=== PATIENT | female | born 1980 | race Caucasian/White ===

== ENCOUNTER 2018-11-09 15:41 | Observation (INO) | payer OTHER ==
[2018-11-09] MEDS: LACTATED RINGER'S 1,000 ML IV (17:14)
[2018-11-09 18:04] LABS: RUPTURE FETAL MEMBRANES NEGATIVE (NEGATIVE)
[2018-11-10] MEDS ORDERED: PRENATAL VITAMIN PO (09:00)
[2018-11-10] MEDS ORDERED: FERROUS SULFATE (EC) 325 MG TAB PO (09:00)
== END 2018-11-09 23:46 | disposition home or self-care (01) ==
LOC: OBT 15:41 → L-D 15:43 → OBT 16:05 → L-D 16:05
PROVIDERS: Specialist
DX: O60.03 Preterm labor without delivery, third trimester (principal); O44.03 Complete placenta previa NOS or without hemorrhage, third trimester; O41.03X0 Oligohydramnios, third trimester, not applicable or unspecified; Z3A.34 34 weeks gestation of pregnancy
CPT/HCPCS: 76815; 84112; 99217

== ENCOUNTER 2018-11-11 12:10 | Inpatient (IN) | payer OTHER ==
[2018-11-11] MEDS ORDERED: AL HYDROX/MG HYDROX/SIMETH 30 ML CUP PO (13:00)
[2018-11-11] MEDS ORDERED: ACETAMINOPHEN 325 MG TAB PO (13:00)
[2018-11-11] MEDS: LACTATED RINGER'S 1,000 ML IV ×2 (13:10→19:10)
[2018-11-11 13:59] LABS: ADD MAN DIFF? NO
[2018-11-11 14:01] LABS: WHITE BLOOD COUNT 9.7 10^3/ul (4.8-10.8)
[2018-11-11 14:01] LABS: BASOPHIL # 0.1 10^3/ul (0.0-0.1); BASOPHILS % 0.5 % (0.0-2.0); EOSINOPHILS # 0.1 10^3/ul (0.0-0.5); EOSINOPHILS % 0.9 % (0.0-7.0); HEMATOCRIT 41.1 % (37.0-47.0); HEMOGLOBIN 14.2 g/dl (12.0-16.0); LYMPHOCYTES # 1.5 10^3/ul (0.8-2.9); LYMPHOCYTES % 15.4 % (15.0-51.0); MEAN CORPUSCULAR HEMOGLOBIN 31.2 pg (29.0-33.0); MEAN CORPUSCULAR HGB CONC 34.5 g/dl (32.0-37.0); MEAN CORPUSCULAR VOLUME 90.3 fl (82.0-101.0); MEAN PLATELET VOLUME 10.1 fl (7.4-10.4); MONOCYTE # 0.5 10^3/ul (0.3-0.9); MONOCYTES % 5.4 % (0.0-11.0); NEUTROPHIL # 7.4 10^3/ul (1.6-7.5); NEUTROPHILS % 76.2 % (39.0-77.0); PLATELET COUNT 220 10^3/UL (140-415); RED BLOOD COUNT 4.55 10^6/ul (4.20-5.40); RED CELL DISTRIBUTION WIDTH 13.4 % (11.5-14.5)
[2018-11-11 14:22] LABS: INR 0.96; PROTIME 12.9 Sec (11.9-14.9)
[2018-11-11 14:23] LABS: PARTIAL THROMBOPLASTIN TIME 28.6 Sec (23.0-35.0)
[2018-11-11] MEDS: DEXAMETHASONE 4 MG/ML 5 ML INJ IM (14:34)
[2018-11-11 15:20] LABS: RAPID PLASMA REAGIN NONREACTIVE (NR)
[2018-11-11] MEDS: FERROUS SULFATE (EC) 325 MG TAB PO (17:02)
[2018-11-11] MEDS: PRENATAL VITAMIN PO (17:02)
[2018-11-11 17:55] LABS: HEPATITIS B SURFACE ANTIGEN NEGATIVE (NEGATIVE)
[2018-11-12] MEDS: DEXAMETHASONE 4 MG/ML 5 ML INJ IM ×2 (02:19→14:15)
[2018-11-12] MEDS: LACTATED RINGER'S 1,000 ML IV ×3 (02:26→22:32)
[2018-11-12] MEDS: FERROUS SULFATE (EC) 325 MG TAB PO (10:06)
[2018-11-12] MEDS: DOCUSATE SODIUM 100 MG CAP PO (10:08)
[2018-11-12] MEDS: PRENATAL VITAMIN PO (10:16)
[2018-11-13] MEDS: DEXAMETHASONE 4 MG/ML 5 ML INJ IM (02:07)
[2018-11-13] MEDS: LACTATED RINGER'S 1,000 ML IV ×3 (07:18→22:38)
[2018-11-13] MEDS: PRENATAL VITAMIN PO (10:29)
[2018-11-13] MEDS: FERROUS SULFATE (EC) 325 MG TAB PO (10:29)
[2018-11-13] MEDS: DOCUSATE SODIUM 100 MG CAP PO (10:29)
[2018-11-14] MEDS: LACTATED RINGER'S 1,000 ML IV ×2 (08:32→16:00)
[2018-11-14] MEDS: PRENATAL VITAMIN PO (08:36)
[2018-11-14] MEDS: DOCUSATE SODIUM 100 MG CAP PO (08:36)
[2018-11-14] MEDS: FERROUS SULFATE (EC) 325 MG TAB PO (16:00)
== END 2018-11-14 18:43 | disposition home or self-care (01) | DRG 832 ==
LOC: L-D 12:10
PROVIDERS: Specialist
DX: O44.03 Complete placenta previa NOS or without hemorrhage, third trimester (principal); O41.03X0 Oligohydramnios, third trimester, not applicable or unspecified; O36.5930 Maternal care for other known or suspected poor fetal growth, third trimester, not applicable or unspecified; O32.1XX0 Maternal care for breech presentation, not applicable or unspecified; O09.513 Supervision of elderly primigravida, third trimester; Z3A.34 34 weeks gestation of pregnancy
CPT/HCPCS: 85025; 85610; 85730; 86592; 86850; 86900; 86901; 87340

== ENCOUNTER 2018-11-15 11:19 | Inpatient (IN) | payer OTHER ==
[~2018-11-15 11:19] MED LIST: CARBOPROST 250 MCG INJ; METHYLERGONOVINE 0.2 MG INJ; OXYTOCIN 30 UNITS/LR 500 ML BAG IV
[2018-11-15] MEDS ORDERED: CEFAZOLIN 2 GM/50 ML (PMX) 50 ML IVPB (12:00)
[2018-11-15] MEDS ORDERED: MISOPROSTOL 200 MCG TAB PR ×2 (12:00→18:30)
[2018-11-15] MEDS ORDERED: CARBOPROST 250 MCG INJ IM (12:00)
[2018-11-15] MEDS ORDERED: METHYLERGONOVINE 0.2 MG INJ IM (12:00)
[2018-11-15] MEDS ORDERED: OXYTOCIN 30 UNITS/LR 500 ML IV (12:00)
[2018-11-15] MEDS ORDERED: LACTATED RINGER'S 1,000 ML IV (12:40)
[2018-11-15] MEDS: LACTATED RINGER'S 1,000 ML IV (12:50)
[2018-11-15 12:55] LABS: ADD MAN DIFF? NO
[2018-11-15 12:56] LABS: BASOPHIL # 0.1 10^3/ul (0.0-0.1); BASOPHILS % 0.7 % (0.0-2.0); EOSINOPHILS # 0.1 10^3/ul (0.0-0.5); EOSINOPHILS % 0.7 % (0.0-7.0); LYMPHOCYTES # 1.4 10^3/ul (0.8-2.9); LYMPHOCYTES % 13.5 % (15.0-51.0); MEAN CORPUSCULAR HEMOGLOBIN 31.6 pg (29.0-33.0); MEAN CORPUSCULAR HGB CONC 34.2 g/dl (32.0-37.0); MEAN CORPUSCULAR VOLUME 92.5 fl (82.0-101.0); MEAN PLATELET VOLUME 10.2 fl (7.4-10.4); MONOCYTE # 0.7 10^3/ul (0.3-0.9); MONOCYTES % 6.4 % (0.0-11.0); NEUTROPHIL # 8.1 10^3/ul (1.6-7.5); NEUTROPHILS % 75.6 % (39.0-77.0); NUCLEATED RED BLOOD CELLS% 0.3 /100WBC (0.0-0.0); PLATELET COUNT 227 10^3/UL (140-415); RED BLOOD COUNT 4.11 10^6/ul (4.20-5.40); RED CELL DISTRIBUTION WIDTH 13.3 % (11.5-14.5)
[2018-11-15 12:56] LABS: WHITE BLOOD COUNT 10.7 10^3/ul (4.8-10.8)
[2018-11-15 14:21] LABS: INR 0.99; PROTIME 13.2 Sec (11.9-14.9)
[2018-11-15 14:22] LABS: PARTIAL THROMBOPLASTIN TIME 25.6 Sec (23.0-35.0)
[2018-11-15 14:48] LABS: HEPATITIS B SURFACE ANTIGEN NEGATIVE (NEGATIVE)
[2018-11-15 16:48] LABS: RAPID PLASMA REAGIN NONREACTIVE (NR)
[2018-11-15] MEDS ORDERED: NA PHOSPHATE/BIPHOS 133 ML ENEMA PR (18:30)
[2018-11-15] MEDS ORDERED: morphine SULFATE/PF (10 MG/10 ML) INJ (18:33)
[2018-11-15] MEDS ORDERED: METOCLOPRAMIDE 10 MG INJ (18:48)
[2018-11-15] MEDS ORDERED: ONDANSETRON 4 MG INJ (18:48)
[2018-11-15] MEDS ORDERED: DEXAMETHASONE 4 MG/ML 1 ML INJ (18:49)
[2018-11-15] MEDS ORDERED: FAMOTIDINE 20 MG INJ (18:49)
[2018-11-15] MEDS ORDERED: PHENYLephrine (100 MCG/ML) 5ML SYG (18:50)
[2018-11-15] MEDS ORDERED: MIDAZOLAM 1 MG/ML 2 ML INJ (18:52)
[2018-11-15] MEDS ORDERED: ZOLPIDEM 5 MG TAB PO (19:30)
[2018-11-15] MEDS ORDERED: DIPHENHYDRAMINE 50 MG INJ IV (19:30)
[2018-11-15] MEDS ORDERED: HYDROmorphONE 0.5 MG/0.5 ML SYG IV ×2 (19:30)
[2018-11-15] MEDS ORDERED: NALOXONE (0.4 MG/ML) INJ IV (19:30)
[2018-11-15] MEDS ORDERED: ONDANSETRON 4 MG INJ IV (19:30)
[2018-11-15] MEDS: OXYTOCIN 30 UNITS/LR 500 ML IV (19:58)
[2018-11-15] MEDS: SENNA/DOCUSATE NA (8.6MG/50MG) TAB PO (21:00)
[2018-11-15] MEDS: DIPHENOXYLATE/ATROPINE TAB PO (21:01)
[2018-11-16] MEDS: IBUPROFEN 600 MG TAB PO ×4 (06:00→18:00)
[2018-11-16] MEDS: OXYTOCIN 30 UNITS/LR 500 ML IV (06:34)
[2018-11-16 08:20] LABS: ADD MAN DIFF? NO
[2018-11-16 08:30] LABS: BASOPHILS % 0.2 % (0.0-2.0); HEMATOCRIT 36.8 % (37.0-47.0); HEMOGLOBIN 12.6 g/dl (12.0-16.0); LYMPHOCYTES # 1.2 10^3/ul (0.8-2.9); LYMPHOCYTES % 7.8 % (15.0-51.0); MEAN CORPUSCULAR HEMOGLOBIN 31.7 pg (29.0-33.0); MEAN CORPUSCULAR HGB CONC 34.2 g/dl (32.0-37.0); MEAN CORPUSCULAR VOLUME 92.5 fl (82.0-101.0); MEAN PLATELET VOLUME 10.2 fl (7.4-10.4); MONOCYTE # 0.7 10^3/ul (0.3-0.9); MONOCYTES % 4.5 % (0.0-11.0); NEUTROPHIL # 13.2 10^3/ul (1.6-7.5); NEUTROPHILS % 85.9 % (39.0-77.0); PLATELET COUNT 197 10^3/UL (140-415); RED BLOOD COUNT 3.98 10^6/ul (4.20-5.40); RED CELL DISTRIBUTION WIDTH 13.2 % (11.5-14.5)
[2018-11-16 08:30] LABS: WHITE BLOOD COUNT 15.3 10^3/ul (4.8-10.8)
[2018-11-16] MEDS: SENNA/DOCUSATE NA (8.6MG/50MG) TAB PO ×2 (09:21→22:43)
[2018-11-16] MEDS: KETOROLAC 30 MG INJ IV ×2 (10:36→18:16)
[2018-11-16] MEDS: LACTATED RINGER'S 1,000 ML IV ×2 (11:03→19:00)
[2018-11-16] MEDS: LANOLIN HPA 1 PKT TOP (12:55)
[2018-11-17] MEDS: IBUPROFEN 600 MG TAB PO ×5 (00:12→23:44)
[2018-11-17] MEDS: LACTATED RINGER'S 1,000 ML IV (00:57)
[2018-11-17 07:24] LABS: ADD MAN DIFF? NO
[2018-11-17 07:29] LABS: WHITE BLOOD COUNT 10.7 10^3/ul (4.8-10.8)
[2018-11-17 07:29] LABS: BASOPHILS % 0.4 % (0.0-2.0); EOSINOPHILS # 0.2 10^3/ul (0.0-0.5); EOSINOPHILS % 1.4 % (0.0-7.0); HEMATOCRIT 31.7 % (37.0-47.0); HEMOGLOBIN 10.6 g/dl (12.0-16.0); LYMPHOCYTES # 2.3 10^3/ul (0.8-2.9); LYMPHOCYTES % 21.8 % (15.0-51.0); MEAN CORPUSCULAR HEMOGLOBIN 31.2 pg (29.0-33.0); MEAN CORPUSCULAR HGB CONC 33.4 g/dl (32.0-37.0); MEAN CORPUSCULAR VOLUME 93.2 fl (82.0-101.0); MONOCYTE # 0.6 10^3/ul (0.3-0.9); MONOCYTES % 5.7 % (0.0-11.0); NEUTROPHIL # 7.3 10^3/ul (1.6-7.5); NEUTROPHILS % 68.8 % (39.0-77.0); PLATELET COUNT 160 10^3/UL (140-415); RED CELL DISTRIBUTION WIDTH 13.8 % (11.5-14.5)
[2018-11-17] MEDS: SENNA/DOCUSATE NA (8.6MG/50MG) TAB PO ×2 (09:22→23:44)
[2018-11-17] MEDS: OXYCODONE/ACETAMINOPHEN (5/325) TAB PO ×2 (16:40→23:44)
[2018-11-18] MEDS: IBUPROFEN 600 MG TAB PO ×4 (05:42→23:28)
[2018-11-18] MEDS: DIPHTH/TET/ACEL PERTUSS (ADULT) 0.5 ML VIAL IM* (08:48)
[2018-11-18] MEDS: MEASLES,MUMPS,RUBELLA VACCINE INJ SC* (08:48)
[2018-11-18] MEDS: SENNA/DOCUSATE NA (8.6MG/50MG) TAB PO ×2 (08:48→20:50)
[2018-11-18] MEDS: LANOLIN HPA 1 PKT TOP (11:50)
[2018-11-18] MEDS: OXYCODONE/ACETAMINOPHEN (5/325) TAB PO ×2 (13:50→20:51)
[2018-11-19] MEDS: IBUPROFEN 600 MG TAB PO (05:29)
[2018-11-19] MEDS: SENNA/DOCUSATE NA (8.6MG/50MG) TAB PO (09:50)
== END 2018-11-19 13:55 | disposition home or self-care (01) | DRG 787 ==
LOC: L-D 11:19 → PP1 22:30
PROVIDERS: Specialist
PROC: 10D00Z1 Extraction of Products of Conception, Low, Open Approach (ICD-10-PCS; principal; 2018-11-15 18:00)
DX: O44.03 Complete placenta previa NOS or without hemorrhage, third trimester (principal); O41.03X0 Oligohydramnios, third trimester, not applicable or unspecified; O36.5930 Maternal care for other known or suspected poor fetal growth, third trimester, not applicable or unspecified; O99.214 Obesity complicating childbirth; O99.89 Other specified diseases and conditions complicating pregnancy, childbirth and the puerperium; N73.6 Female pelvic peritoneal adhesions (postinfective); O32.8XX0 Maternal care for other malpresentation of fetus, not applicable or unspecified; Z3A.35 35 weeks gestation of pregnancy; Z37.0 Single live birth
CPT/HCPCS: 85025; 85610; 85730; 86592; 86850; 86900; 86901; 86920; 87340; 88307; 99464